=== PATIENT | female | born 1975 | race Two or more races ===

== ENCOUNTER 2023-11-30 10:04 | Emergency (ER) | payer OTHER ==
[~2023-11-30] VITALS: Ht 170.2 cm; Wt 88.9 kg
[2023-11-30] MEDS ORDERED: 0.9 % SODIUM CHLORIDE 1,000 ML IV STA (10:54)
[2023-11-30] MEDS ORDERED: MEPERIDINE HCL 25 MG/ML AMPUL IV ONE (11:00)
[2023-11-30 11:15] LABS: HEMATOCRIT 37.2 % (36.0-45.00); HEMOGLOBIN 12.4 g/dL (12.0-15.00); MEAN CELL VOLUME 76.1 fL (80.00-100.00); MEAN CORPUSCULAR HEMOGLOBIN 25.4 pg (27.00-32.0); MEAN CORPUSCULAR HGB CONC 33.4 g/dl (32.0-36.0); PLATELET COUNT 110 K/uL (150-450); RED BLOOD COUNT 4.89 M/uL (4.00-6.00); RED CELL DISTRIBUTION WIDTH 15.5 % (11.5-14.5)
[2023-11-30 11:49] LABS: URINE APPEARANCE Clear; URINE BILIRRUBIN Negative (NEGATIVE); URINE BLOOD Negative; URINE COLOR Yellow; URINE LEUKOCYTE Negative; URINE NITRATE Negative; URINE PROTEIN Negative (NEGATIVE); URINE UROBILINOGEN 0.2 E.U./dl
[2023-11-30 11:50] LABS: URINE BACTERIA 193.9 uL (0.0-1933); URINE EPITHELIAL CELLS 3.2 uL (0.0-38.8); URINE RBC 11.7 uL (0.0-20.8)
[2023-11-30 11:50] LABS: CALCIUM 9.3 mg/dL (8.5-10.1); CREATININE SERUM 1.04 mg/dL (0.55-1.02); GFR 56.32; POTASSIUM 3.35 mEq/L (3.5-5.1)
[2023-11-30 12:03] LABS: URINE GLUCOSE 500 MG/DL (NEGATIVE)
[2023-11-30] MEDS ORDERED: ONDANSETRON HCL 2 MG/ML VIAL IV ONE (13:45)
== END 2023-11-30 16:39 | disposition home or self-care (01) ==
LOC: ER 10:05
PROVIDERS: Emergency Medicine
DX: K29.00 Acute gastritis without bleeding (principal); I10 Essential (primary) hypertension

== ENCOUNTER 2024-08-31 21:15 | Emergency (ER) | payer OTHER ==
[~2024-08-31] VITALS: Ht 170.2 cm; Wt 92.1 kg
[2024-08-31] MEDS ORDERED: CARDIZEM CD180 M1 PO (21:34)
[2024-08-31 21:35] VITALS: BP 170/90; O2SAT 98
[2024-08-31] MEDS ORDERED: CATAPRES0.3 MG PO (21:35)
[2024-08-31] MEDS ORDERED: METFORMIN HCL500 MG PO (21:35)
[2024-08-31] MEDS ORDERED: LEVALBUTEROL HCL 1.25 MG/3 ML SOLUTION IH SCH (22:00)
[2024-08-31] MEDS ORDERED: METHYLPREDNISOLONE SOD SUCC 125 MG VIAL IV ONE (22:00)
[2024-08-31] MEDS ORDERED: IPRATROPIUM BROMIDE 0.5 MG/2.5 ML AMPUL.NEB IH SCH (22:00)
[2024-08-31] MEDS ORDERED: METHYLPREDNISOLONE SOD SUCC 125 MG VIAL ONE (22:08)
[2024-08-31] MEDS ORDERED: LEVALBUTEROL HCL 1.25 MG/3 ML SOLUTION IH ONE (22:19)
[2024-08-31] MEDS ORDERED: IPRATROPIUM BROMIDE 0.5 MG/2.5 ML AMPUL.NEB IH ONE (22:20)
[2024-08-31 22:33] LABS: HEMOGLOBIN 12.4 g/dL (12.0-15.00); MEAN CELL VOLUME 76.6 fL (80.00-100.00); MEAN CORPUSCULAR HGB CONC 32.6 g/dl (32.0-36.0); RED BLOOD COUNT 4.96 M/uL (4.00-6.00)
[2024-08-31 22:34] LABS: PLATELET COUNT 106 K/uL (150-450)
[2024-08-31 23:37] LABS: ABG PH 7.484 (7.35-7.45); ABG PO2 82.9 mmHg (80-100)
[2024-08-31 23:38] LABS: ABG pCO2 34.3 mmHg (35-45); BASE EXCESS 2.2 mmol/l; BICARBONATE 25.2 mmol/l (23-25); Tco2 26.2 mmol/l; allen test SATISFACTORY; o2 21 %; puncture site RADIAL LEFT
== END 2024-09-01 00:43 | disposition home or self-care (01) ==
LOC: ER 21:17
PROVIDERS: General Practice
DX: J45.909 Unspecified asthma, uncomplicated (principal); R05.9 Cough, unspecified; Z20.822 Contact with and (suspected) exposure to COVID-19; I10 Essential (primary) hypertension; E11.9 Type 2 diabetes mellitus without complications; Z79.84 Long term (current) use of oral hypoglycemic drugs

== ENCOUNTER 2025-01-13 16:12 | Emergency (ER) | payer OTHER ==
[~2025-01-13] VITALS: Ht 167.6 cm; Wt 89.8 kg
[~2025-01-13 16:12] MED LIST: CARDIZEM CD180 M1 PO; CATAPRES0.3 MG PO; METFORMIN HCL500 MG PO
[2025-01-13] MEDS ORDERED: VANCOMYCIN HCL 1,000 MG VIAL ONE (19:02)
[2025-01-13] MEDS ORDERED: hydrALAZINE HCL 20 MG VIAL ONE (19:02)
[2025-01-13] MEDS ORDERED: hydrALAZINE HCL 20 MG VIAL IV ONE (19:15)
[2025-01-13] MEDS ORDERED: VANCOMYCIN HCL 1,000 MG VIAL IV ONE (19:15)
[2025-01-13 19:36] LABS: BASO % 0.4 % (0.1-1.2); EOS # 0.28 (0.04-0.54); EOS % 3.6 % (0.7-7.0); HEMATOCRIT 42.4 % (34.1-44.9); HEMOGLOBIN 14.6 g/dL (11.2-15.7); LYMPH # 1.96 (1.18-3.74); LYMPH % 25.1 % (19.3-53.1); MEAN CORPUSCULAR HEMOGLOBIN 25.8 pg (25.6-32.2); MONO # 0.48 (0.24-0.82); MONO % 6.1 % (4.7-12.5); NEUT # 5.04 (1.56-6.13); NEUT % 64.4 % (34.0-71.1); PLATELET COUNT 179 K/uL (163-369); RED BLOOD COUNT 5.65 M/uL (3.93-5.22); RED CELL DISTRIBUTION WIDTH 13.7 % (11.6-14.4)
[2025-01-13 20:07] LABS: ALBUMIN 4.3 gm/dL (3.4-5.0); BILIRUBIN TOTAL 0.33 mg/dL (0.3-1.2); CALCIUM 9.3 mg/dL (8.5-10.1); CREATININE SERUM 0.77 mg/dL (0.55-1.02); GFR 79.35; GLOBULINA 4.8 G/DL (2.4-3.5); POTASSIUM 3.65 mEq/L (3.5-5.1); TOTAL PROTEIN 9.1 gm/dL (6.4-8.2)
[2025-01-13] MEDS ORDERED: ONDANSETRON HCL 2 MG/ML VIAL ONE ×2 (20:21)
[2025-01-13] MEDS ORDERED: ONDANSETRON HCL 2 MG/ML VIAL IV ONE (20:30)
[2025-01-13] MEDS ORDERED: DOXYCYCLINE HY100 M2 PO (21:05)
== END 2025-01-13 21:33 | disposition home or self-care (01) ==
LOC: ER 17:40
PROVIDERS: General Practice
DX: L02.91 Cutaneous abscess, unspecified (principal); I16.9 Hypertensive crisis, unspecified; I10 Essential (primary) hypertension; E11.9 Type 2 diabetes mellitus without complications; Z79.84 Long term (current) use of oral hypoglycemic drugs

== ENCOUNTER 2025-07-07 16:25 | Inpatient (IN) | payer OTHER ==
[~2025-07-07] VITALS: Ht 167.6 cm; Wt 89.8 kg
[~2025-07-07 16:25] MED LIST changes: +DOXYCYCLINE HY100 M2 PO
--- NOTE | 2025-07-07 18:12 | NUR ---
SE RECIBE PTE ALERTA Y ORIENTADA X3 QUIEN REFIERE TOS, DOLOR DE PECHO Y DOLOR DE ANTONIO. SE MIDEN S/V Y BP MANUEAL 230/150 DXT 399. SE REALIZA EKG Y SE LE PRESENTA A DR RUSHING, EL MISMO INDICA UBICAR EN MONITOR CARDIACO. SE UBICA EN JESSICA 16 CPN BARANDAS ELEVADAS Y NIVEL MAS BAJO DE LA MISMA. SE CONECTA A MONITOR.
[2025-07-07] MEDS ORDERED: LABETALOL HCL 100 MG/20 ML ML ONE ×2 (18:39→21:34)
[2025-07-07] MEDS ORDERED: MAGNESIUM SULFATE 50% 1,000 MG/2 ML VIAL ONE (18:39)
[2025-07-07] MEDS ORDERED: METHYLPREDNISOLONE SOD SUCC 125 MG VIAL ONE (18:40)
[2025-07-07] MEDS ORDERED: IPRATROPIUM BROMIDE 0.5 MG/2.5 ML AMPUL.NEB IH SCH (18:45)
[2025-07-07] MEDS ORDERED: LEVALBUTEROL HCL 1.25 MG/3 ML SOLUTION IH SCH (18:45)
[2025-07-07] MEDS ORDERED: MAGNESIUM SULFATE IN WATER 2 GM/50 ML PIGGYBAG IV ONE (18:45)
[2025-07-07] MEDS ORDERED: INSULIN REGULAR, HUMAN 1,000 UNIT/10 ML UNITS SUBCUTANEO ONE ×2 (18:45→22:00)
[2025-07-07] MEDS ORDERED: METHYLPREDNISOLONE SOD SUCC 125 MG VIAL IV ONE (18:45)
[2025-07-07] MEDS ORDERED: LABETALOL HCL 20MG/4ML SYRINGE IV ONE (18:45)
--- NOTE | 2025-07-07 19:05 | NUR ---
SE ORIENTA A PACIENTE SOBRE TRATAMIENTO MEDICO, REFIERE ENTENDER. SE REALIZAN MUESTRAS DE LABORATORIO BAJO MEDIDAS ASEPTICAS. SE ADMINISTRAN MEDICAMENTOS BRIEN ORDEN MEDICA. SE COORDINA BETSY X. SE NOTIFICA ABG Y TERAPIA RESPIRATORIA A . PENDIENTE RE-EVALUACION MEDICA.
[2025-07-07 19:26] LABS: BASO % 0.8 % (0.1-1.2); EOS # 0.10 (0.04-0.54); EOS % 1.9 % (0.7-7.0); LYMPH # 2.44 (1.18-3.74); LYMPH % 47.5 % (19.3-53.1); MEAN PLATELET VOLUME 11.70 fl (9.4-12.4); MONO # 0.40 (0.24-0.82); MONO % 7.8 % (4.7-12.5); NEUT # 2.14 (1.56-6.13); NEUT % 41.6 % (34.0-71.1); RED CELL DISTRIBUTION WIDTH 13.2 % (11.6-14.4)
[2025-07-07 19:41] LABS: BUN CREA RATIO 12.0 (7.0-25.0); CREATININE SERUM 0.84 mg/dL (0.55-1.02); GFR 71.77; OSMOLALITY SERUM 288.0 MOSM/KG (275-295)
[2025-07-07 19:59] LABS: GLUCOSE FASTING 399.0 mg/dL (65-100)
[2025-07-07 20:06] LABS: COVID-19 AG NEGATIVE (NEGATIVE)
[2025-07-07] MEDS ORDERED: LEVALBUTEROL HCL 1.25 MG/3 ML SOLUTION IH ONE ×3 (20:06→23:53)
[2025-07-07] MEDS ORDERED: IPRATROPIUM BROMIDE 0.5 MG/2.5 ML AMPUL.NEB IH ONE ×3 (20:07→23:53)
[2025-07-07 20:29] LABS: LYMPHOCYTE MAN 40.0 %; MONOCYTE MAN 10.0 %; NEUTROPHILS MAN 42.0 %
[2025-07-07] MEDS ORDERED: LABETALOL HCL 100 MG/20 ML ML IV STA (21:43)
[2025-07-07] MEDS ORDERED: NITROGLYCERIN 50MG IN NSS (KIT INCLUYE LINEA) IV ONE (23:15)
[2025-07-07] MEDS ORDERED: NITROGLYCERIN IN 5 % DEXTROSE 50 MG/250 ML BOTTLE IV ONE (23:26)
--- NOTE | 2025-07-08 | NUR ---
SE RECIEB FEMINA ALERTA Y OREINTADA X3 A AREA DE CRITICO #3. SE CONECTA A MONITOR CARDIACO Y OXIMETRIA DE PULSO CONTINUA. VENOPUNCION RT ARMA PATENTE EUNICE DE EDEMA Y ERITEMA EN H/L. SE CANALIZA #18 RT ARM Y SE ADMINSITRA ELVIS DE MEDICAMENTO BRIEN ORDEN MEDICA. TRIDIL @3MLS/HR POR IV PUMP. RT.ROHENA PASA ELVIS Y ADMISITRA TERAPIA BRIEN ORDEN MEDICA. PTE PENDIENTE A CONSULTA CON MEDICINA INTERNA.
[2025-07-08] MEDS ORDERED: DILTIAZEM HCL 180 MG CAP.SR.24H PO SCH (02:18)
[2025-07-08] MEDS ORDERED: INSULIN LISPRO 1,000 UNIT/10 ML UNITS SUBCUTANEO PRN (02:30)
[2025-07-08] MEDS ORDERED: ENALAPRILAT DIHYDRATE 2.5 MG/2 ML VIAL IV PRN (02:30)
[2025-07-08] MEDS ORDERED: DEXTROSE 50 % IN WATER 0.5 G/ML DISP.SYRIN IV PRN (02:30)
--- NOTE | 2025-07-08 02:30 | NUR ---
SE NOTIFICA BP A DRA.GARCIA PARSONS [place] [facility].
--- NOTE | 2025-07-08 08:10 | NUR ---
PTE ALERTA Y ORIENTADA X3, SE HEIKE S/V. PTE EN CAMA EN POSICION SEMI SENTADA CON BARANDAS ELEVDAS POR HUMMEL SEGURIDAD. PTE CONECTADA A MONITOR CARDIACO Y OXIMETRIA. PTE CON BUE PATRON RESPIRATORIO AL MOMENTO. PTE CANALIZADA EN BRAZO DERCHO AREA EUNICE DE EDEMA Y ENROJECIMIENTO, PTE RECIBIENDO DRIP DE TRIDIL @ 8 ML/HR. PTE CON ABDOMEN BLANDO AL TACTO Y PERISTALSIS PRESENTE. PTE NO PRESENTA EDEMA EN EXTREMIDADES INFERIORES. AL MOMENTO PTE NO REFIERE DOLOR. SE MANTIENE BAJO OBSERVACION POR CAMBIO.
[2025-07-08] MEDS ORDERED: CLONIDINE HCL 0.1 MG TABLET PO ONE ×2 (09:12→15:46)
[2025-07-08] MEDS ORDERED: DILTIAZEM HCL 240 MG CAP.SR.24H PO SCH (10:15)
[2025-07-08] MEDS ORDERED: SODIUM CHLORIDE 0.45 % 1,000 ML IV SCH (10:15)
[2025-07-08] MEDS ORDERED: PANTOPRAZOLE SODIUM 40 MG/VIAL VIAL IV PUSH SCH (10:16)
[2025-07-08] MEDS ORDERED: OSELTAMIVIR PHOSPHATE 75 MG CAPSULE PO SCH (10:18)
[2025-07-08] MEDS ORDERED: MONTELUKAST SODIUM 10 MG TABLET PO SCH (10:19)
[2025-07-08] MEDS ORDERED: ONDANSETRON 4 MG TAB.RAPDIS PO PRN (10:30)
[2025-07-08] MEDS ORDERED: ACETAMINOPHEN 500 MG GEL..CAP PO PRN (10:30)
[2025-07-08 11:10] VITALS: BP 117/73; O2SAT 99
[2025-07-08] MEDS ORDERED: OSELTAMIVIR PHOSPHATE 75 MG CAPSULE PO ONE ×2 (11:33→15:46)
[2025-07-08] MEDS ORDERED: GUAIFENESIN 200 MG/10 ML BLIST.PACK PO ONE (11:33)
[2025-07-08] MEDS ORDERED: LEVALBUTEROL HCL 1.25 MG/3 ML SOLUTION IH SCH (12:00)
[2025-07-08] MEDS ORDERED: GUAIFENESIN 200 MG/10 ML BLIST.PACK PO SCH (12:00)
[2025-07-08] MEDS ORDERED: INSULIN LISPRO 1,000 UNIT/10 ML UNITS SUBCUTANEO ONE (12:11)
[2025-07-08 12:22] VITALS: BP 138/83; O2SAT 100
[2025-07-08] MEDS ORDERED: LEVALBUTEROL HCL 1.25 MG/3 ML SOLUTION IH ONE ×2 (12:31→19:09)
[2025-07-08 15:32] VITALS: BP 176/88; O2SAT 98
[2025-07-08 17:08] VITALS: BP 161/85
[2025-07-08 19:32] VITALS: BP 158/80; O2SAT 98
[2025-07-08] MEDS ORDERED: ZOLPIDEM TARTRATE 10 MG TABLET PO SCH (21:00)
[2025-07-09 02:50] VITALS: BP 168/83; O2SAT 97
[2025-07-09 06:23] LABS: BASO % 0.3 % (0.1-1.2); EOS # 0.05 (0.04-0.54); EOS % 0.5 % (0.7-7.0); LYMPH # 2.55 (1.18-3.74); LYMPH % 27.0 % (19.3-53.1); MEAN PLATELET VOLUME 11.70 fl (9.4-12.4); MONO # 0.77 (0.24-0.82); MONO % 8.1 % (4.7-12.5); NEUT # 6.04 (1.56-6.13); NEUT % 63.9 % (34.0-71.1); RED CELL DISTRIBUTION WIDTH 13.4 % (11.6-14.4)
[2025-07-09 07:36] LABS: ALT/SGPT 27.0 U/L (12-78); AST/SGOT 12.0 U/L (15-37); BILIRUBIN TOTAL 0.49 mg/dL (0.3-1.2); BUN CREA RATIO 26.0 (7.0-25.0); CHOL HDL RATIO 4.0 (0-5.0); CREATININE SERUM 1.02 mg/dL (0.55-1.02); GFR 57.36; GLOBULINA 3.6 G/DL (2.4-3.5); GLUCOSE FASTING 395.0 mg/dL (65-100); HDL 43.0 mg/dl (40-60); LDH 215.0 U/L (84-246); LDL 90.0 mg/dl (0-130); OSMOLALITY SERUM 292.0 MOSM/KG (275-295); T4 FREE 1.2 NG/ML (0.76-1.46); TSH 1.27 uIU/mL (0.358-3.74); VLDL 38.0 (0-39)
[2025-07-09] MEDS ORDERED: DILTIAZEM HCL 240 MG CAP.SR.24H PO SCH (09:00)
[2025-07-09 09:09] VITALS: BP 133/76; O2SAT 94
[2025-07-09] MEDS ORDERED: MOMETASONE FUROATE 17GM SPRAY NASAL SCH (13:09)
[2025-07-09] MEDS ORDERED: IPRATROPIUM/ALBUTEROL SULFATE 3 ML AMPUL.NEB IH NR (14:00)
[2025-07-09] MEDS ORDERED: METHYLPREDNISOLONE SOD SUCC 40 MG VIAL IV NR (14:00)
[2025-07-09] MEDS ORDERED: MONTELUKAST SODIUM 10 MG TABLET PO NR (14:00)
[2025-07-09] MEDS ORDERED: IPRATROPIUM/ALBUTEROL SULFATE 3 ML AMPUL.NEB IH SCH (17:00)
[2025-07-09 18:06] VITALS: BP 151/88
[2025-07-09] MEDS ORDERED: METHYLPREDNISOLONE SOD SUCC 40 MG VIAL IV SCH (21:00)
[2025-07-10 01:57] VITALS: BP 131/73; O2SAT 100
[2025-07-10] MEDS ORDERED: LORATADINE 10 MG TABLET PO SCH (09:00)
[2025-07-10 21:09] VITALS: BP 160/83; O2SAT 97
[2025-07-11 02:01] VITALS: BP 159/87; O2SAT 96
[2025-07-11 05:33] VITALS: O2SAT 93
[2025-07-11 09:37] VITALS: BP 143/79; O2SAT 97
[2025-07-11] MEDS ORDERED: INSULIN REGULAR, HUMAN 1,000 UNIT/10 ML UNITS SUBCUTANEO STA (12:47)
[2025-07-11] MEDS ORDERED: INSULIN REGULAR, HUMAN 1,000 UNIT/10 ML UNITS IV STA ×2 (14:22→18:17)
[2025-07-11] MEDS ORDERED: INSULIN GLARGINE,HUM.REC.ANLOG 1,000 UNITS/10 ML UNITS SUBCUTANEO STA (14:22)
[2025-07-11 18:02] VITALS: BP 124/76
[2025-07-11] MEDS ORDERED: INSULIN LISPRO 1,000 UNIT/10 ML UNITS SUBCUTANEO STA (18:17)
[2025-07-12 03:31] VITALS: BP 150/90; O2SAT 97
[2025-07-12 08:29] VITALS: BP 158/83; O2SAT 97
[2025-07-12 08:39] LABS: BASO % 0.1 % (0.1-1.2); EOS # 0.00 (0.04-0.54); EOS % 0.0 % (0.7-7.0); LYMPH # 1.49 (1.18-3.74); LYMPH % 14.3 % (19.3-53.1); MEAN PLATELET VOLUME 13.20 fl (9.4-12.4); MONO # 0.73 (0.24-0.82); MONO % 7.0 % (4.7-12.5); NEUT # 8.10 (1.56-6.13); NEUT % 77.8 % (34.0-71.1); RED CELL DISTRIBUTION WIDTH 13.5 % (11.6-14.4)
[2025-07-12] MEDS ORDERED: METHYLPREDNISOLONE SOD SUCC 40 MG VIAL IV SCH (09:00)
[2025-07-12 09:04] LABS: BUN CREA RATIO 31.0 (7.0-25.0); CREATININE SERUM 0.84 mg/dL (0.55-1.02); GFR 71.77; OSMOLALITY SERUM 286.0 MOSM/KG (275-295)
[2025-07-12 09:06] LABS: GLUCOSE FASTING 339.0 mg/dL (65-100)
[2025-07-12] MEDS ORDERED: INSULIN LISPRO 1,000 UNIT/10 ML UNITS SUBCUTANEO ONE (09:13)
[2025-07-12] MEDS ORDERED: INSULIN GLARGINE,HUM.REC.ANLOG 1,000 UNITS/10 ML UNITS SUBCUTANEO ONE (09:15)
[2025-07-12] MEDS ORDERED: INSULIN GLARGINE,HUM.REC.ANLOG 1,000 UNITS/10 ML UNITS SUBCUTANEO STA (09:16)
[2025-07-12] MEDS ORDERED: INSULIN LISPRO 1,000 UNIT/10 ML UNITS SUBCUTANEO STA (09:17)
[2025-07-12] MEDS ORDERED: INSULIN LISPRO 1,000 UNIT/10 ML UNITS SUBCUTANEO SCH (12:00)
[2025-07-12 18:49] VITALS: BP 178/96
[2025-07-13] MEDS ORDERED: INSULIN LISPRO 1,000 UNIT/10 ML UNITS SUBCUTANEO SCH (08:00)
[2025-07-13] MEDS ORDERED: INSULIN GLARGINE,HUM.REC.ANLOG 1,000 UNITS/10 ML UNITS SUBCUTANEO SCH (09:00)
== END 2025-07-12 20:17 | disposition home or self-care (01) | DRG 195 ==
LOC: ER 16:26 → MEDJ 07-08 12:16 → SEC-K 07-08 12:16 → MEDJ 07-08 16:20 → SEC-K 07-08 18:39 → MEDJ 07-08 19:29
PROVIDERS: General Practice; Internal Medicine; Internal Medicine Infectious Disease; ADMIT Internal Medicine; ATTEND Internal Medicine
PROC: BT43ZZZ Ultrasonography of Bilateral Kidneys (ICD-10-PCS; principal; 2025-07-08)
PROC: B24BYZZ Ultrasonography of Heart with Aorta using Other Contrast (ICD-10-PCS; 2025-07-08)
PROC: 4A12X4Z Monitoring of Cardiac Electrical Activity, External Approach (ICD-10-PCS; 2025-07-08)
DX: J10.1 Influenza due to other identified influenza virus with other respiratory manifestations (principal); I10 Essential (primary) hypertension; Z79.4 Long term (current) use of insulin; E11.65 Type 2 diabetes mellitus with hyperglycemia